=== PATIENT | male | born 1945 | race Caucasian/White ===

== ENCOUNTER 2024-11-06 07:08 | Day surgery (SDC) | payer OTHER ==
[2024-11-01 11:18] LABS: Absolute Eosinophils 0.2 K/uL (0-0.5); Absolute Lymphocytes (CBC) 1.7 K/uL (0.7-4.9); Absolute Monocytes 0.8 K/uL (0.1-1.3); Absolute Neutrophil 6.1 K/uL (1.8-8.0); Basophils % 0.3 % (0-1.3); Hematocrit 30.8 % (39.6-49.0); Hemoglobin 10.2 g/dL (13.6-17.9); Lymphocytes % 19.7 % (15.3-44.8); MCH 31.5 pg (27.0-35.0); MCHC 33.1 g/dL (32.0-36.0); MCV 95.4 fL (80-100); MPV 9.4 fL (7.6-11.3); Monocytes % 9.1 % (3.3-12.3); Neutrophils % 68.9 % (41.7-73.7); Platelets 186 thou/uL (152-406); RBC Red Blood Cell Count 3.23 M/uL (4.33-5.43); Red Cell Distribution Width 17.4 % (12.1-15.2)
[2024-11-01 11:33] LABS: Anion Gap 3.7 mEq/L (5.0-15.0); Potassium 4.7 mEq/L (3.5-5.1)
--- NOTE | 2024-11-02 13:42 | EKG ---
Test Date: 2024-11-01 Test Time: 12:01:27 Glass Decorator: LACHELLE MEASUREMENT RESULTS: Intervals: Rate: 73 GA: 172 QRSD: 94 QT: 394 QTc: 434 Clarence: P: 93 GA: 172 QRS: 91 T: 79 INTERPRETIVE STATEMENTS: Suspect arm lead reversal, interpretation assumes no reversal Sinus rhythm with premature atrial complexes Rightward axis Incomplete right bundle branch block Nonspecific ST abnormality Abnormal ECG Compared to ECG 11/14/2017 13:28:19 Atrial premature complex(es) now present Right-axis deviation now present ST (T wave) deviation still present Electronically Signed On 11-02-24 13:38:50 POST MANAGER by Renan Harris
[2024-11-06] MEDS: NA CHLORIDE 0.9% 1,000 ML ONE (07:30)
[2024-11-06] MEDS ORDERED: propofoL 200 MG/20 ML VIAL IV ONE ×2 (07:48→08:14)
[2024-11-06] MEDS ORDERED: LIDOCAINE 1% MPF 5 ML VIAL ONE (07:48)
[2024-11-06] MEDS ORDERED: EPINEPHRINE 1 MG/ML VIAL ONE (07:53)
[2024-11-06 08:02] VITALS: O2SAT 100
[2024-11-06 09:44] VITALS: BP 138/44; TEMP 97.4
== END 2024-11-06 10:02 | disposition home or self-care (01) ==
LOC: OR 07:08
PROVIDERS: ATTEND Internal Medicine Gastroenterology
PROC: 0DB88ZX Excision of Small Intestine, Via Natural or Artificial Opening Endoscopic, Diagnostic (ICD-10-PCS; 2024-11-06)
PROC: 0W3P8ZZ Control Bleeding in Gastrointestinal Tract, Via Natural or Artificial Opening Endoscopic (ICD-10-PCS; 2024-11-06)
PROC: 0DB68ZX Excision of Stomach, Via Natural or Artificial Opening Endoscopic, Diagnostic (ICD-10-PCS; principal; 2024-11-06 08:30)
DX: D50.9 Iron deficiency anemia, unspecified (principal); K27.9 Peptic ulcer, site unspecified, unspecified as acute or chronic, without hemorrhage or perforation; K92.1 Melena; K31.819 Angiodysplasia of stomach and duodenum without bleeding; K29.50 Unspecified chronic gastritis without bleeding
CPT/HCPCS: 43239; 43251; 93005; 85025; 80048; 36415; 88312; 82947; 88305; J2704; J2003; J7030; J0171

== ENCOUNTER 2024-11-20 07:07 | Day surgery (SDC) | payer OTHER ==
[2024-11-20] MEDS: NA CHLORIDE 0.9% 1,000 ML ONE (07:15)
[2024-11-20] MEDS ORDERED: LIDOCAINE 2% MPF 5 ML VIAL ONE (08:09)
[2024-11-20] MEDS ORDERED: propofoL 200 MG/20 ML VIAL IV ONE (08:10)
[2024-11-20 08:27] VITALS: O2SAT 100
[2024-11-20 10:47] VITALS: BP 144/42; TEMP 98.2
== END 2024-11-20 09:57 | disposition home or self-care (01) ==
LOC: OR 07:07
PROVIDERS: ATTEND Internal Medicine Gastroenterology
PROC: 0DJD8ZZ Inspection of Lower Intestinal Tract, Via Natural or Artificial Opening Endoscopic (ICD-10-PCS; principal; 2024-11-20 08:40)
DX: K92.1 Melena (principal); D50.0 Iron deficiency anemia secondary to blood loss (chronic); K59.00 Constipation, unspecified; Z87.19 Personal history of other diseases of the digestive system; K57.30 Diverticulosis of large intestine without perforation or abscess without bleeding; K64.8 Other hemorrhoids
CPT/HCPCS: 82947; 45378; J2704; J2003; J7030